=== PATIENT | male | born 1985 | race Asian ===

== ENCOUNTER 2018-10-03 17:15 | Emergency (ER) | payer OTHER ==
[~2018-10-03] VITALS: Ht 162.6 cm; Wt 68.2 kg
[2018-10-03 18:34] LABS: INFLUENZA A AMPLIFICATION NEGATIVE (NEGATIVE); INFLUENZA B AMPLIFICATION NEGATIVE (NEGATIVE)
[2018-10-03 20:30] VITALS: BP 121/79
== END 2018-10-03 20:32 | disposition home or self-care (01) ==
LOC: M ED 17:15
DX: R53.83 Other fatigue (principal); G47.30 Sleep apnea, unspecified